=== PATIENT | female | born 1975 | race Hispanic/Latino ===

== ENCOUNTER 2023-08-26 11:25 | Emergency (ER) | payer SELFPAY ==
[2023-08-26 11:43] VITALS: BP 155/95
[2023-08-26 12:20] LABS: % Basophils 0.9 % (0-2); % Eosinophils 4.5 % (0-6); % Immature Granulocytes 0.2 % (0-0.5); % Lymphocytes 26.9 % (20.5-51.1); % Monocytes 6.8 % (1.7-9.3); % Neutrophils 60.7 % (42.2-75.2); Absolute Basophils 0.1 10^3/uL (0-0.2); Absolute Eosinophils 0.4 10^3/uL (0-0.7); Absolute Lymphocytes 2.4 10^3/uL (1.2-3.4); Absolute Monocytes 0.6 10^3/uL (0.1-0.6); Absolute Neutrophils 5.3 10^3/uL (1.4-6.5); Hematocrit 38.3 % (37.0-47.0); Hemoglobin 12.9 g/dL (12.0-16.0); Mean Corp Hgb Conc. 33.7 g/dL (33.0-37.0); Mean Corpuscular Hgb 27.9 pg (27.0-31.0); Mean Corpuscular Volume 82.7 fL (81.0-99.0); Mean Platelet Volume 9.9 fL (7.4-10.4); Nucleated Red Blood Cells % 0 %; Platelet Count 344 10^3/uL (130-400); Red Blood Cell Count 4.63 10^6/uL (4.20-5.40); Red Cell Dist. Width 13.4 % (11.5-14.5); White Blood Cell Count 8.8 10^3/uL (4.8-10.8)
[2023-08-26 12:26] LABS: HCG, Serum Qualitative Screen Negative
[2023-08-26 12:30] LABS: ALT (SGPT) 25 U/L (0-35); AST (SGOT) 28 U/L (14-36); Albumin 4.2 g/dl (3.5-5.0); Alkaline Phosphatase 78 U/L (38-126); Blood Urea Nitrogen 15 mg/dl (7-17); Calcium 9.8 mg/dl (8.4-10.2); Carbon Dioxide 26 mmol/L (22-30); Chloride 102 mmol/L (98-107); Glucose 109 mg/dl (70-99); Potassium 3.3 mmol/L (3.5-5.1); Sodium 138 mmol/L (135-145); Total Bilirubin 0.5 mg/dl (0.2-1.3); Total Protein 7.3 g/dl (6.3-8.2); eGFR > 60.00
[2023-08-26 12:51] VITALS: BMI 40.4
--- NOTE | 2023-08-26 13:27 | ED.GENMED ---
History of Present Illness
General
Chief Complaint: Headache
Source: patient
Exam Limitations: other (ivorian speaking)
Time Seen by Provider: 08/26/23 12:44
Nursing documentation reviewed up to this point in time: agreed with
Travel History
Have you had any contact with someone who has COVID-19?: No
Do you have any symptoms of coronavirus? Fever > 100 degrees, chills, cough, shortness of breath, sore throat, loss of taste or smell, muscle aches, or headache?: No
History of Present Illness
History of Present Illness:
Patient is a 48 year old female with hx HTN, headaches presenting for evaluation of persistent headache for the past 3 days. Headache started about 3 days ago and has been worsening. It was not a sudden onset headache. Pain is located throughout
entire head into the neck. She endorses some blurry vision, dizziness, chills, and nasal congestion. She denies any fever, chest pain, shortness of breath, nausea, or vomiting. No difficulty walking, confusion, weakness, or numbness. She denies any
recent virus/illness. She has a history of headaches associated with nasal congestion but states that this one feels very different. She takes HCTZ 12.5mg daily and has prescription for amitriptyline 10mg. She had no relief of headache with
amitriptyline. No recent trauma or injury.
Patient is Czech speaking and chemistry tutor was used for history taking.
Past History
Past History
ED Past Medical History: HTN
ED Past Surgical History: Orthopedic
Social History
Tobacco: Non-smoker
Alcohol: None
Personal:
Living: with family
Phy Exam
Physical Exam
Physical Exam:
General: Well appearing and non-toxic
HEENT: Atraumatic, normocephalic; pupils equal round reactive to light bilaterally, extraocular muscles intact; posterior pharynx without erythema or edema, protecting airway
Neck: appears supple, no meningeal signs, some paracervical muscle tenderness; no c-spine or midline spinal tenderness
CV: Regular rate rhythm, heart sounds normal, no evidence of cyanosis
Resp: No evidence of respiratory stress, lungs clear, no accessory muscle use
Abd: Soft, nontender non-distended
Extremities: No deformities, no evidence of cyanosis or edema
Neuro: alert and oriented to person place time, speech normal, no focal motor deficits, strength 5 out of 5 in upper and lower extremities, sensation fully intact, normal finger-nose
Psych: Normal affect
Skin: Intact, no rashes
Course
Orders/Labs/Results
Orders:
Orders
08/26/23 11:50
CT Head W/o Iv Contrast Urgent
Comment:
Reason For Exam: headache
Test Result ONCE
08/26/23 11:57
Complete Blood Count/With Diff Urgent
Comprehensive Metabolic Panel Urgent
HCG, Serum Qualitative Screen Urgent
08/26/23 13:38
Ketorolac [Toradol] 15 mg IM NOW STA
Potassium Chloride 10% Elixir [KCl Elixir] 40 meq PO NOW STA
Abnormal Lab Results
08/26/23
11:57
Potassium 3.3 L mmol/L
(3.5-5.1)
Glucose 109 H mg/dl
(70-99)
08/26/23 11:57
08/26/23 11:57
Vital Signs
Initial and Last Documented VS:
Initial Vital Signs
Temp Pulse Resp BP Pulse Ox
98 F 73 16 155/95 99
08/26/23 11:43 08/26/23 11:43 08/26/23 11:43 08/26/23 11:43 08/26/23 11:43
Last Documented Vital Signs
Temp Pulse Resp BP Pulse Ox
98 F 73 16 155/95 99
08/26/23 11:43 08/26/23 11:43 08/26/23 11:43 08/26/23 11:43 08/26/23 11:43
MDM/Problems Addressed
Differential Diagnosis Includes:
Migraine headache, tension headache, acute sinusitis, viral illness
MDM/Problems Addressed:
Patient is a 48-year-old female with history hypertension presenting with gradual onset headache that has been worsening over the past 3 days. Headache associated with some blurry vision, nasal congestion, dizziness, chills. No fever, nausea,
vomiting, numbness, weakness. Patient with history of headaches in the past and has prescription for amitriptyline. Amitriptyline has not been helpful and this headache feels very different per patient. Patient is hemodynamically stable, afebrile
upon arrival. Physical exam as documented above. No focal neurologic deficits on exam. She has some paracervical muscular tenderness. She has normal range of motion of neck and no meningeal signs. Suspect likely tension headache or acute
sinusitis. Basic labs ordered in triage. CBC without any abnormalities. CMP with mild hypokalemia with K of 3.3. Otherwise no clinically significant abnormalities. test negative. Will replete potassium. Given change in typical
headache pattern�will get CT of head. Will give 15 IM Toradol for pain. Will reassess
Update: Patient reports some improvement in headache after Toradol.
CT scan shows a 5mm calcification in left temporoparietal region with a possibility of a cyst related to neurocysticercosis vs vascular malformation. Follow-up with MRI recommended. Spoke with neurology who recommend outpatient MRI imaging - no
indication for admission at this time.
Patient remains stable while in the emergency department with no focal neurological deficit. Headache has improved since arrival. Length discussion with patient regarding importance of free clinic follow-up and outpatient MRI. She is stable for
discharge with close return precautions and clinic follow-up. Will send 30 day supply of amitriptyline prescription as previously prescribed by PCP. Patient expressed understanding. She is comfortable with this plan and has no further questions.
Chronic conditions affecting care:
Hypertension
Acute Exacerbation and/or Progression of Chronic Illness:
Headache
*Radiology
Radiology exam reviewed: preliminary read by ED provider and radiology read reviewed
*Pulse Oximetry
Patient hypoxic: no
*Bus Driver Interpretation
Rate: Bus Driver- N/A
*Critical Care Note
Total Time (30-74mins, 75-104mins- exclusive of procedures): Not Applicable
ED Attending Note
-
Portions of this chart may have been created with voice recognition software.� Occasional wrong word or��sound alike� substitutions may have occurred due to the inherent limitations of voice recognition software.
Discharge Plan
Departure
Patient Disposition: Home (Routine Discharge)
Date of Disposition: 08/26/23
Time of Disposition: 15:58
Patient with high blood pressure during this ER visit?: Yes
Condition: Good
Covid-19: Not Applicable
Discharge Problem:
Headache
Instructions: Headache, Adult (DC), BLOOD PRESSURE
Prescriptions:
New
amitriptyline 10 mg tablet
10 mg PO DAILY Qty: 30 0RF
Rx Instructions:
at 5PM
No Action
acetaminophen 325 MG tablet
325 mg PO TIDPRN PRN (Reason: mild pain)
norethindrone (contraceptive) 0.35 MG tablet
0.35 mg PO DAILY
sennosides [senna] 1 TABLET tablet
2 tab PO BID 0RF
magnesium hydroxide 30 ML suspension
30 ml PO [id number] PRN (Reason: constipation) 0RF
docusate sodium 100 MG capsule
100 mg PO BID 0RF
alum-mag hydroxide-simeth [Mag-Al Plus] 30 ML suspension
30 ml PO Q4HPRN PRN (Reason: indigestion) 0RF
hydrocodone-acetaminophen [[place]] 1 EACH tablet
1 ea PO Q4HPRN PRN (Reason: pain) Qty: 30 0RF
Rx Instructions:
1 every 4 hour as needed for pain
Referrals:
NONE,* [Family Provider] -
Activity Restrictions/Additional Instructions:
-Return to the emergency department with any severe headache, high fevers, visual changes, weakness/numbness of extremities, chest pain, shortness of breath, worsening in current symptoms, or any other concerns
-As discussed - there was a calcification found on your CT scan of your brain today. This must be followed up with an outpatient MRI. You will need to make an appointment with the free clinic to have this scheduled
-A new prescription has been sent to your pharmacy for amitriptyline. You can take this medication daily for headache prevention
-You can take advil as needed for pain from headache.
-Follow-up with free clinic for further evaluation/management of headaches
Interventions
Interventions:
*Risk Screen - Suicide Last Done: 08/26/23 12:51
*General Assessment Last Done: 08/26/23 12:51
*Neglect/Abuse Screening Last Done: 08/26/23 12:51
*Nursing Disposition Last Done: 08/26/23 16:14
ED- Neurological Assessment Last Done: 08/26/23 12:51
Discharge Date and Time
Discharge Date/Time: 08/26/23 16:14
[2023-08-26] MEDS: TORADOL 15 MG IM (14:06)
[2023-08-26] MEDS: KCL ELIXIR 40 MEQ PO (14:07)
== END 2023-08-26 16:14 | disposition home or self-care (01) ==
LOC: EMR 11:25
PROVIDERS: Emergency Medicine; EMERGENCY PHYSICIAN Emergency Medicine
DX: R51.9 Headache, unspecified (principal); R68.83 Chills (without fever); R09.81 Nasal congestion; I10 Essential (primary) hypertension
CPT/HCPCS: 99284; 96372; 70450; 80053; 84703; 85025

== ENCOUNTER → 2023-09-30 20:05 | Outpatient (REF) | payer OTHER, SELFPAY | LOC: MRI 20:05 | PROVIDERS: ATTENDING PHYSICIAN Nurse Practitioner Adult Health | DX: G44.209 Tension-type headache, unspecified, not intractable (principal); R90.89 Other abnormal findings on diagnostic imaging of central nervous system | CPT/HCPCS: 70553; A9575 ==

== ENCOUNTER → 2024-02-21 07:09 | Outpatient (REF) | payer OTHER, SELFPAY ==
[2024-02-21 08:08] LABS: % Basophils 0.8 % (0-2); % Eosinophils 4.1 % (0-6); % Immature Granulocytes 0.3 % (0-0.5); % Lymphocytes 27.6 % (20.5-51.1); % Monocytes 8.8 % (1.7-9.3); % Neutrophils 58.4 % (42.2-75.2); Absolute Basophils 0.1 10^3/uL (0-0.2); Absolute Eosinophils 0.4 10^3/uL (0-0.7); Absolute Lymphocytes 2.6 10^3/uL (1.2-3.4); Absolute Monocytes 0.8 10^3/uL (0.1-0.6); Absolute Neutrophils 5.5 10^3/uL (1.4-6.5); Hematocrit 34.1 % (37.0-47.0); Hemoglobin 11.5 g/dL (12.0-16.0); Mean Corp Hgb Conc. 33.7 g/dL (33.0-37.0); Mean Corpuscular Hgb 27.3 pg (27.0-31.0); Mean Corpuscular Volume 80.8 fL (81.0-99.0); Mean Platelet Volume 9.5 fL (7.4-10.4); Nucleated Red Blood Cells % 0 %; Platelet Count 352 10^3/uL (130-400); Red Blood Cell Count 4.22 10^6/uL (4.20-5.40); Red Cell Dist. Width 13.6 % (11.5-14.5); White Blood Cell Count 9.4 10^3/uL (4.8-10.8)
[2024-02-21 08:39] LABS: ALT (SGPT) 36 U/L (0-35); AST (SGOT) 42 U/L (14-36); Albumin 4.1 g/dl (3.5-5.0); Alkaline Phosphatase 71 U/L (38-126); Blood Urea Nitrogen 11 mg/dl (7-17); Calcium 8.9 mg/dl (8.4-10.2); Carbon Dioxide 27 mmol/L (22-30); Chloride 104 mmol/L (98-107); Glucose 78 mg/dl (70-99); HDL Cholesterol 48 mg/dl; LDL Cholesterol, Calculated 82 mg/dl; Potassium 3.3 mmol/L (3.5-5.1); Sodium 138 mmol/L (135-145); Total Bilirubin 0.5 mg/dl (0.2-1.3); Total Cholesterol 144 mg/dl (50-199); Total Protein 6.7 g/dl (6.3-8.2); Triglyceride 70 mg/dl (10-149); Very Low Density Lipoprotein 14 mg/dl (0-30); eGFR > 60.00
[2024-02-21 09:20] LABS: Glycohemoglobin (HgbA1c) 5.6 % (4.0-5.6)
== END ==
LOC: REG 07:09
PROVIDERS: ATTENDING PHYSICIAN Nurse Practitioner Adult Health
DX: I10 Essential (primary) hypertension (principal); R73.03 Prediabetes
CPT/HCPCS: 36415; 80053; 80061; 83036; 85025

== ENCOUNTER → 2024-05-08 07:24 | Outpatient (REF) | payer OTHER, SELFPAY ==
[2024-05-08 09:16] LABS: Blood Urea Nitrogen 12 mg/dl (7-17); Calcium 9.2 mg/dl (8.4-10.2); Carbon Dioxide 26 mmol/L (22-30); Chloride 105 mmol/L (98-107); Glucose 92 mg/dl (70-99); Potassium 4.3 mmol/L (3.5-5.1); Sodium 142 mmol/L (135-145); eGFR > 60.00
== END ==
LOC: REG 07:24
PROVIDERS: ATTENDING PHYSICIAN Nurse Practitioner Adult Health
DX: I10 Essential (primary) hypertension (principal)
CPT/HCPCS: 36415; 80048

== ENCOUNTER → 2024-08-06 14:50 | Outpatient (REF) | payer OTHER, SELFPAY | LOC: WDC 14:50 | PROVIDERS: ATTENDING PHYSICIAN Nurse Practitioner Adult Health | DX: Z12.31 Encounter for screening mammogram for malignant neoplasm of breast (principal) | CPT/HCPCS: 77063; 77067 ==

== ENCOUNTER → 2024-08-07 07:01 | Outpatient (REF) | payer OTHER, SELFPAY ==
[2024-08-07 09:25] LABS: ALT (SGPT) 23 U/L (0-35); AST (SGOT) 28 U/L (14-36); Alkaline Phosphatase 108 U/L (38-126); Blood Urea Nitrogen 9 mg/dl (7-17); Calcium 8.7 mg/dl (8.4-10.2); Carbon Dioxide 25 mmol/L (22-30); Chloride 103 mmol/L (98-107); Glucose 82 mg/dl (70-99); Potassium 3.6 mmol/L (3.5-5.1); Sodium 139 mmol/L (135-145); Total Bilirubin 0.3 mg/dl (0.2-1.3); Total Protein 6.7 g/dl (6.3-8.2); eGFR > 60.00
== END ==
LOC: CLINIC 07:01
PROVIDERS: ATTENDING PHYSICIAN Nurse Practitioner Adult Health
DX: R74.8 Abnormal levels of other serum enzymes (principal); I10 Essential (primary) hypertension
CPT/HCPCS: 36415; 80053

== ENCOUNTER → 2024-12-17 15:34 | Outpatient (REF) | payer OTHER, SELFPAY | LOC: RAD 15:34 | PROVIDERS: ATTENDING PHYSICIAN Nurse Practitioner Family | DX: N85.2 Hypertrophy of uterus (principal); N92.4 Excessive bleeding in the premenopausal period | CPT/HCPCS: 76830; 76856 ==

== ENCOUNTER → 2025-02-05 07:17 | Outpatient (REF) | payer OTHER, SELFPAY ==
[2025-02-05 08:36] LABS: Hematocrit 36.6 % (37.0-47.0); Hemoglobin 12.2 g/dL (12.0-16.0); Mean Corp Hgb Conc. 33.3 g/dL (33.0-37.0); Mean Corpuscular Volume 80.8 fL (81.0-99.0); Platelet Count 352 10^3/uL (130-400); Red Cell Dist. Width 13.4 % (11.5-14.5)
[2025-02-05 09:11] LABS: ALT (SGPT) 26 U/L (0-35); AST (SGOT) 27 U/L (14-36); Albumin 4.3 g/dl (3.5-5.0); Alkaline Phosphatase 79 U/L (38-126); Blood Urea Nitrogen 13 mg/dl (7-17); Calcium 8.8 mg/dl (8.4-10.2); Carbon Dioxide 22 mmol/L (22-30); Chloride 111 mmol/L (98-107); Glucose 91 mg/dl (70-99); HDL Cholesterol 43 mg/dl; LDL Cholesterol, Calculated 88 mg/dl; Potassium 4.0 mmol/L (3.5-5.1); Sodium 140 mmol/L (135-145); Total Protein 7.2 g/dl (6.3-8.2); Very Low Density Lipoprotein 13 mg/dl (0-30); eGFR > 60.00
[2025-02-05 11:56] LABS: Glycohemoglobin (HgbA1c) 6.0 % (4.0-5.6)
== END ==
LOC: CLINIC 07:17
PROVIDERS: ATTENDING PHYSICIAN Nurse Practitioner Adult Health
DX: I10 Essential (primary) hypertension (principal); D64.9 Anemia, unspecified; R73.03 Prediabetes
CPT/HCPCS: 36415; 80053; 80061; 83036; 85027